=== PATIENT | female | born 1945 | race Caucasian/White ===

== ENCOUNTER 2017-11-09 13:05 | Day surgery (SDC) | payer OTHER ==
[2017-11-06 17:54] LABS: BASOPHILS ABSOLUTE AUTO 0.04 K/mm3 (0.00-0.23); BASOPHILS PERCENT AUTO 1 % (0-2); EOSINOPHILS ABSOLUTE AUTO 0.15 K/mm3 (0.00-0.68); EOSINOPHILS PERCENT AUTO 3 % (0-6); Hematocrit 37.1 % (33.0-51.0); Hemoglobin 12.4 g/dL (11.5-16.0); IMMATURE GRAN ABSOLUTE AUTO 0.01 K/mm3 (0.00-0.10); IMMATURE GRAN PERCENT AUTO 0 % (0-1); LYMPHOCYTES PERCENT AUTO 36 % (21-46); MONOCYTES ABSOLUTE AUTO 0.53 K/mm3 (0.16-1.47); MONOCYTES PERCENT AUTO 10 % (4-13); Mean Corpuscular HGB 30.5 pg (26.0-34.0); Mean Corpuscular HGB Conc 33.4 g/dL (31.5-36.5); Mean Corpuscular Volume 91 fL (80-100); Mean Platelet Volume 9.8 fL (9.1-12.4); NEUTROPHILS ABSOLUTE AUTO 2.87 K/mm3 (1.96-9.15); NEUTROPHILS PERCENT AUTO 51 % (41-73); Platelet Count 307 K/mm3 (150-400); RDW Standard Deviation 43.8 fL (35.1-46.3); Red Blood Cell Count 4.07 M/mm3 (3.80-5.20)
[2017-11-06 20:30] LABS: Anion Gap 7 mmol/L (6-16); Blood Urea Nitrogen 15 mg/dL (8-24); Bun/Creatinine Ratio 18.7 (12.0-20.0); CO2, Blood 29 mmol/L (21-32); Calcium, Blood 9.4 mg/dL (8.5-10.1); Chloride, Blood 104 mmol/L (98-108); Glomerular Filtration Rate >60 (60-); Glucose, Blood 88 mg/dL (70-99); Potassium, Blood 3.6 mmol/L (3.5-5.5); Sodium, Blood 140 mmol/L (136-145)
[~2017-11-09] VITALS: Ht 152.4 cm; Wt 65.4 kg
[~2017-11-09 13:05] MED LIST: ATOR10 PO; Aspirin EC81 MG; Cartia Xt180 MG PO; Dyazide 37.5-21 EACH PO
[2017-11-09] MEDS ORDERED: POTA8 (13:40)
== END 2017-11-09 15:55 | disposition home or self-care (01) ==
LOC: ORSCSDS 13:05
PROVIDERS: Podiatrist
PROC: 0QSN04Z Reposition Right Metatarsal with Internal Fixation Device, Open Approach (ICD-10-PCS; principal; 2017-11-09 14:15)
DX: M20.11 Hallux valgus (acquired), right foot (principal); I10 Essential (primary) hypertension; Z79.899 Other long term (current) drug therapy; Z79.82 Long term (current) use of aspirin
CPT/HCPCS: 36415; 80048; 85025; 93005; 93010; C1713; J0690; J2250; J3010; J7120

== ENCOUNTER 2019-01-27 07:09 | Day surgery (SDC) | payer OTHER ==
[~2019-01-27] VITALS: Ht 152.4 cm; Wt 64.0 kg
[~2019-01-27 07:09] MED LIST changes: +POTA8
== END 2019-01-27 09:10 | disposition home or self-care (01) ==
LOC: ORSCSDS 07:09
PROVIDERS: Surgery
PROC: 0DBP8ZX Excision of Rectum, Via Natural or Artificial Opening Endoscopic, Diagnostic (ICD-10-PCS; principal; 2019-01-27 08:15)
PROC: 0DBK8ZX Excision of Ascending Colon, Via Natural or Artificial Opening Endoscopic, Diagnostic (ICD-10-PCS; principal; 2019-01-27 08:15)
DX: K62.5 Hemorrhage of anus and rectum (principal); D12.2 Benign neoplasm of ascending colon; K62.1 Rectal polyp; K64.8 Other hemorrhoids; R19.4 Change in bowel habit; I10 Essential (primary) hypertension; E78.5 Hyperlipidemia, unspecified; Z79.82 Long term (current) use of aspirin; Z79.899 Other long term (current) drug therapy
CPT/HCPCS: 88305; J0330; J0461; J1980; J2405; J2704; J7120

== ENCOUNTER 2024-12-04 12:33 | Day surgery (SDC) | payer OTHER ==
[~2024-12-04] VITALS: Ht 152.4 cm; Wt 60.9 kg
[~2024-12-04 12:33] MED LIST changes: +ALBU90OI INH; +Lactated Ringer's 1,000 ML IV ONE; +propofoL 50 ML IV ONE
[2024-12-04] MEDS ORDERED: Methylene Blue 1% 100 MG/10 ML VIAL ONE (12:58)
[2024-12-04] MEDS ORDERED: Lidocaine 2% 5 ML SDV ONE (12:58)
[2024-12-04] MEDS ORDERED: LORA10ER (13:25)
[2024-12-04] MEDS ORDERED: LOSA25 (13:25)
[2024-12-04] MEDS ORDERED: Lactated Ringer's 1,000 ML IV ONE (13:36)
[2024-12-04 14:54] VITALS: BP 134/77
== END 2024-12-04 14:54 | disposition home or self-care (01) ==
LOC: ORSCSDS 12:33
PROVIDERS: Surgery
PROC: 0DBN8ZX Excision of Sigmoid Colon, Via Natural or Artificial Opening Endoscopic, Diagnostic (ICD-10-PCS; principal; 2024-12-04 13:45)
PROC: 0DBK8ZX Excision of Ascending Colon, Via Natural or Artificial Opening Endoscopic, Diagnostic (ICD-10-PCS; principal; 2024-12-04 13:45)
DX: K92.1 Melena (principal); Z87.19 Personal history of other diseases of the digestive system; Z86.0100 Personal history of colon polyps, unspecified; D12.2 Benign neoplasm of ascending colon; K63.5 Polyp of colon; I10 Essential (primary) hypertension; E78.5 Hyperlipidemia, unspecified; M10.9 Gout, unspecified; Z79.899 Other long term (current) drug therapy
CPT/HCPCS: 88305; J2704; J7120; Q9968